=== PATIENT | male | born 1990 | race Caucasian/White ===

== ENCOUNTER → 2022-01-01 | Outpatient (CLI) | payer OTHER ==
--- NOTE | 2022-01-01 22:01 | XR ---
EXAMINATION TYPE: XR cervical spine comp, XR lumbosacral spine min 4V, XR thoracic spine 2V DATE OF EXAM: 01/01/2022 TECHNIQUE: Frontal, lateral, oblique, swimmers, and open mouth view of the cervical spine are obtaine d. Frontal and lateral views of the thoracic and lumbar spine. Additional oblique images lumbar spine . HISTORY: R20.2,Z91.81 COMPARISON: None FINDINGS: The cervical spine is visualized in its entirety from C1 thru the top of T1 level, it is s atisfactory in alignment without evidence of acute fracture or dislocation. The pre-vertebral soft t issue appears within normal limits. The C1-C2 articulation is within normal limits on the open mouth view. Vertebral body heights and disc space heights are maintained. The oblique images are within n ormal limits. Overlying soft tissue is unremarkable. Thoracic spine shows satisfactory alignment without evidence of acute fracture or dislocation. Verteb ral body heights and disc space heights are preserved. Visualized ribs are intact bilaterally. There are 5 lumbar-type vertebrae identified. Lumbar spine shows satisfactory alignment. Vertebral magalis dy heights and disc space heights are maintained. Oblique images appear within normal limits. Ovoid d ensity in the left lateral abdomen likely reflects ingested food product or nondigested pill. IMPRESSION: Fairly unremarkable study.
== END | disposition home or self-care (01) ==
LOC: RADXRMAIN 17:42
PROVIDERS: ATTEND Family Medicine
DX: R20.2 Paresthesia of skin (principal); Z91.81 History of falling
CPT/HCPCS: 72050; 72070; 72110

== ENCOUNTER → 2022-01-01 | Outpatient (CLI) | payer OTHER ==
--- NOTE | 2022-01-01 22:34 | CT ---
EXAMINATION TYPE: CT chest wo con CT DLP: 212.20 mGycm, Automated exposure control for dose reduction was used. DATE OF EXAM: 01/01/2022 5:45 PM COMPARISON: None CLINICAL INDICATION:Male, 31 years old with history of R06.02,R07.89,Z91.81, pericarditis. Recent fal l and SOB TECHNIQUE: Multiple axial images were obtained through the chest without IV contrast. Lack of IV or o ral contrast limits evaluation of solid and hollow organ viscera. FINDINGS: LUNGS/ PLEURA: The lung parenchyma appears unremarkable. AIRWAY: Patent and unremarkable.. HEART: Size within normal limits. MEDIASTINUM: No gross evidence of adenopathy. No evidence of pericardial effusion. VASCULATURE: No aortic aneurysm. MUSCULOSKELETAL: No acute osseous abnormalities SOFT TISSUES/LYMPH NODES: Unremarkable. LOWER NECK: No significant findings. UPPER ABDOMEN: No significant findings. IMPRESSION: No evidence for acute process within the thorax.
== END | disposition home or self-care (01) ==
LOC: RADCTMAIN 17:25
PROVIDERS: ATTEND Family Medicine
DX: R06.02 Shortness of breath (principal); R07.89 Other chest pain; Z91.81 History of falling
CPT/HCPCS: 71250

== ENCOUNTER → 2022-03-30 | Outpatient (CLI) | payer OTHER ==
--- NOTE | 2022-03-30 11:55 | US ---
EXAMINATION TYPE: US carotid duplex BILAT DATE OF EXAM: 03/30/2022 COMPARISON: NONE CLINICAL HISTORY: R55 SYNCOPE. EXAM MEASUREMENTS: RIGHT: Peak Systolic Velocity (PSV) cm/sec ----- Right CCA: 158 ----- Right ICA: 139 ----- Right ECA: 136 ICA/CCA ratio: .9 RIGHT: End Diastole cm/sec ----- Right CCA: 33.2 ----- Right ICA: 40.5 ----- Right ECA: 21.8 LEFT: Peak Systolic Velocity (PSV) cm/sec ----- Left CCA: 166 ----- Left ICA: 147 ----- Left ECA: 148 ICA/CCA ratio: .9 LEFT: End Diastole cm/sec ----- Left CCA: 39.8 ----- Left ICA: 48.3 ----- Left ECA: 16.1 VERTEBRALS (direction of flow): Right Vertebral: Antegrade Left Vertebral: Antegrade Rhythm: Normal No significant stenosis seen Grayscale images show no significant focal plaque. IMPRESSION: No hemodynamically significant stenosis either internal carotid artery. Criteria for Assigning % of Stenosis / Diameter reduction (Estimation based on the indirect measurements of the internal carotid artery velocities (ICA PSV). 1. Normal (no stenosis)=ICA PSV < 125 cm/s: ratio < 2.0: ICA EDV<40 cm/s. 2. Less than 50% stenosis=ICA PSV < 125 cm/s: ratio < 2.0: ICA EDV<40 cm/s. 3. 50 to 69% stenosis=ICA PSV of 125 to 230 cm/s: ration 2.0 ? 4.0: ICA EDV 40-100 cm/s. 4. Greater than 70% stenosis to near occlusion= ICA PSV > 230 cm/s: ratio > 4.0: ICA EDV > 100 cm/s. 5. Near occlusion= ICA PSV velocities may be low or undetectable: variable ratio and ICA EDV. 6. Total occlusion=unable to detect flow.
== END | disposition home or self-care (01) ==
LOC: RADUSWWP 10:54
PROVIDERS: ATTEND Family Medicine
DX: R55 Syncope and collapse (principal)
CPT/HCPCS: 93880

== ENCOUNTER → 2022-03-31 | Outpatient (CLI) | payer OTHER | LOC: CPPFTMAIN 11:11 | PROVIDERS: ATTEND Family Medicine | DX: R06.02 Shortness of breath (principal) | CPT/HCPCS: 94060; 94726; 94729 ==

== ENCOUNTER → 2022-04-13 | Outpatient (CLI) | payer OTHER ==
--- NOTE | 2022-04-14 07:12 | MR ---
EXAMINATION TYPE: MR brain wo/w con DATE OF EXAM: 04/13/2022 COMPARISON: None HISTORY: Syncope/collapse CONTRAST: Performed utilizing 7 mL intravenous Gadavist gadolinium contrast. TECHNIQUE: Multiplanar, multiecho imaging on a 3.0 Tuyet magnet is performed through the brain. Stud y is performed within 24 hours of arrival to the hospital. The craniovertebral junction is normal. The pituitary is normal. Diffusion-weighted imaging is performed. No abnormal hyperintensity is present to suggest an acute i ntracranial infarct or acute ischemic change. No signal abnormality is evident within the visualized portions of brain. Ventricles and sulci are appropriate for the patient age. No abnormal enhancement is evident. IMPRESSIONS: 1. No acute intracranial process
== END | disposition home or self-care (01) ==
LOC: RADMRIMAIN 12:05
PROVIDERS: ATTEND Family Medicine
DX: R55 Syncope and collapse (principal); R51.9 Headache, unspecified
CPT/HCPCS: 70553; A9585